=== PATIENT | female | born 1960 | race Hispanic/Latino ===

== ENCOUNTER 2022-11-10 17:26 | Emergency (ER) | payer SELFPAY ==
[~2022-11-10] VITALS: Ht 157.5 cm; Wt 72.6 kg
[2022-11-10 21:11] VITALS: BP 122/60
== END 2022-11-10 21:10 | disposition home or self-care (01) ==
LOC: ER 17:33
DX: S00.83XA Contusion of other part of head, initial encounter (principal); W18.12XA Fall from or off toilet with subsequent striking against object, initial encounter; Y92.89 Other specified places as the place of occurrence of the external cause; I10 Essential (primary) hypertension; F41.9 Anxiety disorder, unspecified; F32.A Depression, unspecified
CPT/HCPCS: 70450; 72125; 99283

== ENCOUNTER 2022-11-28 15:14 | Emergency (ER) | payer BC ==
[~2022-11-28] VITALS: Ht 157.5 cm; Wt 72.6 kg
[2022-11-28] MEDS ORDERED: OMEPRAZOLE40 MG PO (15:57)
[2022-11-28] MEDS ORDERED: ONDANSETRON ODT4 MG PO (15:57)
[2022-11-28] MEDS ORDERED: MUCINEX DM ER1 EACH PO (15:57)
== END 2022-11-28 17:12 | disposition home or self-care (01) ==
LOC: ER 15:20
DX: R05.9 Cough, unspecified (principal); J06.9 Acute upper respiratory infection, unspecified; I10 Essential (primary) hypertension; F41.9 Anxiety disorder, unspecified; F32.A Depression, unspecified; Z20.822 Contact with and (suspected) exposure to COVID-19
CPT/HCPCS: 83518; 87070; 99283; U0002